=== PATIENT | female | born 1990 | race African-American/Black ===

== ENCOUNTER 2016-11-13 08:33 | Emergency (ER) | payer OTHER ==
[~2016-11-13] VITALS: Ht 162.6 cm; Wt 93.4 kg
[~2016-11-13 08:33] MED LIST: CLEOCIN300 MG PO; LEVOTHYROXINE50 MCG PO; SERTRALINE HCL100 MG PO; ULTRAM50 MG PO
[2016-11-13 09:19] LABS: ADD MIUA? NO; BILIRUBIN NEGATIVE; BLOOD NEGATIVE; COLOR YELLOW ((YELLOW)); GLUCOSE (STRIP) NEGATIVE; KETONES NEGATIVE; LEUKOCYTES NEGATIVE; NITRITE NEGATIVE; PROTEIN (STRIP) NEGATIVE; SPECIFIC GRAVITY 1.012 (1.000-1.030); UROBILINOGEN 0.2 MG/DL (0.2-1.0)
[2016-11-13 09:23] LABS: MCH 29.5 PG (29.0-34.0); MCHC 32.4 G/DL (30.0-36.0); MCV 90.9 FL (83-99); MEAN PLAT.VOLUME 10.1 uM^3 (9.5-12.4); PLATELET COUNT 281 K/uL (156-360); RBC DIS.WIDTH-SD 42.6 % (39-53); RED BLOOD COUNT 4.07 M/uL (3.80-5.20); WHITE BLOOD COUNT 9.6 K/uL (4.1-10.2)
[2016-11-13 09:33] LABS: CHLORIDE 103 mEq/L (99-109); POTASSIUM 3.5 mEq/L (3.7-5.4); SODIUM 138 mEq/L (136-147)
[2016-11-13 09:35] LABS: GLUCOSE 96 mg/dL (70-99)
[2016-11-13 09:36] LABS: ANION GAP 9 MEQ/L (2-14)
[2016-11-13 09:37] LABS: TOTAL BILIRUBIN 0.5 mg/dL (0.0-1.0)
[2016-11-13 09:38] LABS: ALKALINE PHOSPHATASE 114 IU/L (3-129)
[2016-11-13 09:39] LABS: GFR ESTIMATE (CALCULATED) > 59 mL/min/
[2016-11-13 09:40] LABS: UREA NITROGEN (BUN) 11 mg/dL (9-23)
[2016-11-13 09:42] LABS: LIPASE 31 U/L (1.0-51.0)
[2016-11-13 09:47] LABS: QUANTITATIVE HCG < 4.0 MIU/ML
[2016-11-13] MEDS ORDERED: TORADOL10 MG PO (10:36)
[2016-11-13 10:46] VITALS: BP 116/70
== END 2016-11-13 10:49 | disposition home or self-care (01) ==
LOC: EME 08:33
PROVIDERS: Nurse Practitioner Family
DX: R10.12 Left upper quadrant pain (principal); E03.9 Hypothyroidism, unspecified; R73.03 Prediabetes
CPT/HCPCS: 74000; 80053; 81003; 83690; 84702; 85027; 99281; 99284; J1885